=== PATIENT | female | born 1960 | race Two or more races ===

== ENCOUNTER 2024-10-24 10:48 | Inpatient (IN) | payer MEDICARE, MEDICAID ==
[~2024-10-24] VITALS: Ht 157.5 cm; Wt 85.5 kg
--- NOTE | 2024-10-24 11:11 | ED.PDOC ---
History of Present Illness HPI Comments 63-year-old female with a history of dementia, diabetes, anxiety, and tremors, was brought in by emergency services with a chief complaint of generalized weakness, with the associated chills. Emergency services states the patient has been feeling weak for the past couple of days, which is abnormal from her baseline. EMS also notes the patient's blood sugar on route was noted to be 285. Patient is noted to be alert oriented x3 at this time. Patient denies any nausea, vomiting, diarrhea, abdominal pain, chest pain, shortness a breath, dysuria, hematuria, or any other associated symptoms, modifiers at this time. 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 Family History Family History: Reviewed,noncontributory to illness Social History Smoker: Non-Smoker Alcohol: Denies ETOH Use Drugs: Denies Drug Use Lives In: Assisted Care Constitutional: reports: chills, weakness; denies: diaphoresis, fatigue, fever, malaise, sweats, others EENTM: denies: blurred vision, double vision, ear bleeding, ear discharge, ear drainage, ear pain, ear ringing, eye pain, eye redness, hearing loss, mouth pain, mouth swelling, nasal discharge, nose bleeding, nose congestion, nose pain, photophobia, tearing, throat pain, throat swelling, voice changes, others Respiratory: denies: cough, hemoptysis, orthopnea, SOB at rest, shortness of breath, SOB with excertion, stridor, wheezing, others Cardiovascular: denies: chest pain, dizzy spells, diaphoresis, Dyspnea on exertion, edema, irregular heart beat, left arm pain, lightheadedness, palpita tions, PND, syncope, others Gastrointestinal: denies: abdomen distended, abdominal pain, blood streaked luis wels, constipated, diarrhea, dysphagia, difficulty swallowing, hematemesis, melena, nausea, poor appetite, poor fluid intake, rectal bleeding, rectal pain, vomiting, others Genitourinary: denies: abnormal vagina bleeding, burning, dyspareunia, dysuria, flank pain, frequency, hematuria, incontinence, pain, , vagina discharge, urgency, others Neurological: denies: dizziness, fainting, headache, left sided numbness, left sided weakness, numbness, paresthesia, pre-existing deficit, right sided numbness, right sided weakness, seizure, speech problems, tingling, tremors, weakness, others Musculoskeletal: denies: back pain, gout, joint pain, joint swelling, muscle pain, muscle stiffness, neck pain, others Integumetry: denies: bruises, change in color, change in hair/nails, dryness, laceration, lesions, lumps, rash, wounds, others Allergic/Immunocompromised: denies: Difficulty Healing, Frequent Infections, Hives, Itching, others Hematologic/Lymphatic: denies: anemia, blood clots, easy bleeding, easy bruis ing, swollen glands, others Endocrine: denies: excessive hunger, excessive sweating, excessive thirst, exc essive urination, flushing, intolerance to cold, intolerance to heat, unexplained weight gain, unexplained weight loss, others Psychiatric: denies: anxiety, bipolar disorder, depression, hopeless, panic disorder, schizophrenia, sleepless, suicidal, others All Other Systems: Reviewed and Negative Physical Exam General Appearance: Moderate Distress, Normal HEENT: Normal ENT Inspection, Pharynx Normal, TMs Normal Neck: Full Range of Motion, Non-Tender, Normal, Normal Inspection Respiratory: Chest Non-Tender, Lungs Clear, No Accessory Muscle Use, No Respiratory Distress, Normal Breath Sounds Cardiovascular: No Edema, No JVD, No Murmur, No Gallop, Normal Peripheral Pulses, Regular Rate/Rhythm Breast Exam: Deferred Gastrointestinal: No Organomegaly, Non Tender, No Pulsatile Mass, Normal Bowel Sounds, Soft Genitalia: Deferred Pelvic: Deferred Rectal: Deferred Extremities: No calf tenderness, Normal capillary refill, Normal inspection, Normal range of motion, Non-tender, No pedal edema Musculoskeletal : Apperance: Normal Neurologic: Disoriented, No Motor Deficits, Normal Affect, Normal Mood, No Sensory Deficits Cerebellar Function: NOT DONE Reflexes: NOT DONE Skin: Dry, Normal Color, Warm Peripheral Pulses: 3+ Radial (R), 3+ Radial (L) Lymphatic: No Adenopathy Was a procedure done? Was a procedure done?: No Differential Dx Considerations may include: Musculoskeletal pain, influenza, hyperglycemia, anxiety X-Ray, Labs, Meds, VS Vital Signs Date Time Temp Pulse Resp B/P (MAP) Pulse Ox O2 Delivery O2 Flow Rate FiO2 10/24/24 11:04 98.1 88 18 100/66 93 98.1 Lab Test 10/24/24 11:48 Range/Units White Blood Count 6.8 4.4-10.8 10^3/uL Red Blood Count 4.98 4.0-5.20 10^6/uL Hemoglobin 15.1 12.2-16.2 g/dL Hematocrit 45.2 36.0-46.0 % Mean Corpuscular Volume 90.9 80.0-100.0 fL Mean Corpuscular Hemoglobin 30.4 28.0-32.0 pg Mean Corpuscular Hemoglobin Concent 33.5 32.0-36.0 g/dL Red Cell Distribution Width 13.5 11.8-14.3 % Platelet Count 231 140-450 10^3/uL Mean Platelet Volume 8.2 6.9-10.8 fL Neutrophils (%) (Auto) 58.3 37.0-80.0 % Lymphocytes (%) (Auto) 25.9 10.0-50.0 % Monocytes (%) (Auto) 11.4 0.0-12.0 % Eosinophils (%) (Auto) 4.1 0.0-7.0 % Basophils (%) (Auto) 0.3 0.0-2.0 % Neutrophils # (Auto) 4.0 1.6-8.6 10 ^3/uL Lymphocytes # (Auto) 1.8 0.4-5.4 10 ^3/uL Monocytes # (Auto) 0.8 0-1.3 10 ^3/uL Eosinophils # (Auto) 0.3 0-0.8 10 ^3/uL Basophils # (Auto) 0 0-0.2 10 ^3/uL Nucleated Red Blood Cells 0.1 % Sodium Level 144 136-145 mmol/L Potassium Level 3.8 3.5-5.1 mmol/L Chloride Level 107 98-107 mmol/L Carbon Dioxide Level 28 20-31 mmol/L Anion Gap 9 5-15 Blood Urea Nitrogen 14 9-23 mg/dL Creatinine 1.02 0.550-1.02 mg/dL Glomerular Filtration Rate Calc 61 >90 mL/min BUN/Creatinine Ratio 13.7 10.0-20.0 Serum Glucose 100 74-106 mg/dL Calcium Level 9.0 8.7-10.4 mg/dL Troponin I High Sensitivity < 3 L </=34 ng/L Current Medications Medications (Trade) Dose Ordered Sig/Shelly Route Start Time Stop Time Status Last Admin Sodium Chloride 1,000 ml @ 1,000 mls/hr Q1H ONCE IV 10/24/24 11:30 10/24/24 12:29 DC 10/24/24 11:50 Patient answering simple questions. Vitals stable. History of dementia. Cardiac marker within normal limits. Blood pressure slightly low. Was given fluids. Explained to the patient. Continue monitoring. PATIENT: DREW BAKER ACCT: [id number] UNIT: [id number] : 02/17/1961 LOC: ER ROOM / BED: / AGE / SEX: 63 / F ADM STATUS: REG ER SERVICE 1120 ORDERING PHYSICIAN: AMANDA TUCKER MD PROCEDURE(s): CXRP - CHEST PORTABLE REASON: sob ORDER NUMBER(s): [id number], ACCESSION NUMBER(s): [id number] XY CHEST PORTABLE, HISTORY: sob COMPARISON: None None TECHNICAL DATA: 1 view of the chest was obtained. FINDINGS: Lines and tubes: None Cardiomediastinal silhouette: Enlarged Pulmonary vasculature: normal Lung expansion: normal Lung airspace: normal Lung interstitium: normal Pleura: normal Pneumothorax: no Bones: Unremarkable Other: no IMPRESSION: No acute intrathoracic abnormality. Time of 1ST Reevaluation: 11:38 Reevaluation 1ST: Unchanged Patient Education/Counseling: Diagnosis, Treatment, Need For Follow Up Family Education/Counseling: No Family Present SEPSIS Sepsis Screen Physician Orders Chest Portable (10/24/24 11:20) Urinalysis (10/24/24 11:20) Vital Signs Date Time Temp Pulse Resp B/P (MAP) Pulse Ox O2 Delivery O2 Flow Rate FiO2 10/24/24 11:04 98.1 88 18 100/66 93 98.1 Laboratory Tests Test 10/24/24 11:48 White Blood Count 6.8 10^3/uL (4.4-10.8) Medications Medications Dose Ordered Sig/Shelly Route Start Time Stop Time Status Last Admin Dose Admin Sodium Chloride 1,000 ml @ 1,000 mls/hr Q1H ONCE IV 10/24/24 11:30 10/24/24 12:29 DC 10/24/24 11:50 Departure 1 Departure Time of Disposition: 12:49 Impression: Primary Impression: Hypotension Qualified Codes: I95.9 - Hypotension, unspecified Additional Impression: Metabolic encephalopathy Disposition: ADMITTED INPATIENT Admit to: Med Surg Condition: Guarded Critical Care Note Critical Care Time?: Yes (90 min-critical care time only) Stability Stability form required: No Heart Score Heart Score: Heart Score Response (Comments) Value History Slightly Suspicious 0 EKG Normal 0 Age >65 2 Risk Factors >3 or Hx ASHD 2 Troponin Normal limit 0 Total 4 I personally scribed for AMANDA TUCKER MD ([email or web address]) on 10/24/24 at 11:11. Electronically submitted by Axel Richmond ([employer]). I personally scribed for AMANDA TUCKER MD ([email or web address]) on 10/24/24 at 12:04. Electronically submitted by Axel Richmond ([employer]). I personally scribed for AMANDA TUCKER MD ([email or web address]) on 10/24/24 at 12:06. Electronically submitted by Axel Richmond ([employer]). AMANDA TUCKER MD Oct 24, 2024 11:11
[2024-10-24] MEDS: SODIUM CHLORIDE 0.9% 1,000 ML IV ONE ×2 (11:50→21:43)
--- NOTE | 2024-10-24 11:50 | DVH ---
XY CHEST PORTABLE, HISTORY: sob COMPARISON: None None TECHNICAL DATA: 1 view of the chest was obtained. FINDINGS: Lines and tubes: None Cardiomediastinal silhouette: Enlarged Pulmonary vasculature: normal Lung expansion: normal Lung airspace: normal Lung interstitium: normal Pleura: normal Pneumothorax: no Bones: Unremarkable Other: no IMPRESSION: No acute intrathoracic abnormality.
[2024-10-24 12:07] LABS: Hematocrit 45.2 % (36.0-46.0); Hemoglobin 15.1 g/dL (12.2-16.2); Mean Corpuscular Hemoglobin 30.4 pg (28.0-32.0); Mean Corpuscular Volume 90.9 fL (80.0-100.0); Nucleated Red Blood Cells % 0.1 %
[2024-10-24 12:13] LABS: Chloride 107 mmol/L (98-107); Potassium 3.8 mmol/L (3.5-5.1); Sodium 144 mmol/L (136-145)
[2024-10-24 12:14] LABS: Anion Gap 9 (5-15); Calcium 9.0 mg/dL (8.7-10.4); Carbon Dioxide 28 mmol/L (20-31)
[2024-10-24 12:19] LABS: BUN/Creatinine Ratio 13.7 (10.0-20.0); Blood Urea Nitrogen 14 mg/dL (9-23); Glucose 100 mg/dL (74-106)
[2024-10-24] MEDS ORDERED: SODIUM CHLORIDE 0.9% 1,000 ML IV ONE (13:00)
[2024-10-24] MEDS ORDERED: AZITHROMYCIN 500MG/ 250ML 250 ML IV ONE (13:00)
[2024-10-24 18:40] VITALS: PULSE 72; RESP 16; O2SAT 93
[2024-10-24] MEDS ORDERED: ONDANSETRON HCL 4 MG/2 ML VIAL IV PRN (21:45)
[2024-10-24] MEDS ORDERED: HYDROcodone-ACET 5/325MG TAB PO PRN (21:45)
[2024-10-24] MEDS ORDERED: DEXTROSE (50%) 50ML SYRG IV PRN (21:45)
[2024-10-24] MEDS ORDERED: ACETAMINOPHEN 325 MG TAB PO PRN (21:45)
[2024-10-24] MEDS ORDERED: hydrALAZINE HCL 20 MG/ML VL IV PRN (21:45)
[2024-10-24] MEDS ORDERED: DOCUSATE SOD 100 MG CAP PO PRN (21:45)
[2024-10-24] MEDS: ACCU-CHEK COMFORT CURVE STRIP VI SCH (22:00)
[2024-10-24] MEDS: InsuLIN REG 1unit/0.01ml Soln (100units/ml) SC SCH (22:00)
[2024-10-24] MEDS: SODIUM CHLOR 0.9% PF (SALINE LOCK) 10ML VIAL/SYR IV SCH (22:02)
[2024-10-24] MEDS: CEFEPIME 1GM/ 50ML 50 ML IV ONE (22:28)
--- NOTE | 2024-10-24 23:14 | DVHHP2 ---
History of Present Illness Reason for Visit: Generalized weakness History of Present Illness The patient is a 63 years old female with past medical history of anxiety, dementia, tremors, and diabetes mellitus who presented to [facility] ED with complaint of generalized weakness. Patient reports she has been experi encing weakness for the past couple of days, associated with chills, getting worse today that prompted this visit. Patient was seen and evaluated in the ED, laboratory data shows WBC 6.8, platelets 231, sodium 144, potassium 3.8, BUN 14, creatinine 1.02, glucose 100, calcium 9.0, troponin < 3, blood pressure 141/93, pulse 72, temperature 97.6 F, O2 saturation 95% on room air. Chest x-ray show no acute intrathoracic abnormality. On my assessment, patient denied chest pain, no headache, dizziness, no diaphoresis, no shortness of breath, no abdominal pain, no diarrhea, no nausea, no vomiting, no fever, no chills. Patient was admitted for further evaluation and medical management. Past Medical History Anxiety, Dementia, DM, Tremors Past Surgical History Denies all surgeries Family History Reviewed, noncontributory to the management of this case. Past Social History The patient lives at home, denies smoking, alcohol or illicit drugs abuse. Review of Systems Constitutional: Yes: Weakness; No: Fever, Chills, Sweats, Malaise, Other Eyes: No: Pain, Vision change, Conjunctivae inflammation, Eyelid inflammation, Other, Redness ENT: No: Ear pain, Ear discharge, Nose pain, Nose discharge, Nose congestion, Mouth pain, Mouth swelling, Throat pain, Throat swelling, Other Respiratory: No: Cough, Dry, Shortness of breath, SOB with excertion, Wheezing, Hemoptysis, Pleuritic Pain, Sputum, Wheezing, Other Cardiovascular: No: Chest Pain, Palpitations, Orthopnea, Paroxysmal Noc. Dyspnea, Edema, Lt Headedness, Other Gastrointestinal: No: Nausea, Vomiting, Abdominal Pain, Diarrhea, Constipation, Melena, Hematochezia, Other Genitourinary: No Dysuria, No Frequency, No Incontinence, No Hematuria, No Retention, No Other Musculoskeletal: No: other, neck pain, shoulder pain, arm pain, back pain, hand pain, leg pain, foot pain Skin: No: Rash, Lesions, Jaundice, Bruising, Other Neurological: No: Weakness, Numbness, Incoordination, Change in speech, Confusion, Seizures, Other Allergies: Coded Allergies: UNOBTAINABLE (Unverified , 10/24/24) Medications Current Medications Medications Dose Ordered Sig/Shelly Route Start Time Stop Time Status Last Admin Dose Admin Diagnostic Test (Pha) 1 strip ACHS 10/24/24 22:00 Insulin Human Regular ACHS SC 10/24/24 22:00 Dextrose 50 ml UD PRN IV 10/24/24 21:45 Sodium Chloride 10 ml Q8HR IV 10/24/24 22:00 10/24/24 22:02 10 ML Acetaminophen/ Hydrocodone Bitart 1 tab Q4HP PRN PO 10/24/24 21:45 Ondansetron HCl 4 mg Q4HP PRN IV 10/24/24 21:45 Docusate Sodium 100 mg BIDPRN PRN PO 10/24/24 21:45 Acetaminophen 650 mg Q6HP PRN PO 10/24/24 21:45 Hydralazine HCl 10 mg Q6HP PRN IV 10/24/24 21:45 Exam Vital Signs Vital Signs Date Time Temp Pulse Resp B/P (MAP) Pulse Ox O2 Delivery O2 Flow Rate FiO2 10/24/24 20:10 97.4 70 18 141/83 (102) 95 97.4 10/24/24 18:40 Room Air* 0 21 General Appearance: Alert, Oriented X3, Cooperative, No acute distress HEENT: Atraumatic, PERRLA, EOMI, Mucous membr. moist/pink Respiratory: Normal air movement Cardiovascular: Regular rate, Normal S1, Normal S2, No murmurs Abdominal: Normal bowel sounds, Soft, No tenderness, No hepatospenomegaly, No masses Extremities: No clubbing, No cyanosis, No edema, Normal pulses, No tenderness/swelling Skin: No rashes, No breakdown, No significant lesion Neuro: Normal speech, Normal tone, Sensation intact, Cranial nerves 3-12 NL, Reflexes 2+, Other (Generalized weakness) Psych/Mental Status: Mental status NL, Mood NL Labs/Xrays Labs Test 10/24/24 13:28 10/24/24 11:48 Range/Units Lactic Acid Level 1.2 0.4-2.0 mmol/L White Blood Count 6.8 4.4-10.8 10^3/uL Red Blood Count 4.98 4.0-5.20 10^6/uL Hemoglobin 15.1 12.2-16.2 g/dL Hematocrit 45.2 36.0-46.0 % Mean Corpuscular Volume 90.9 80.0-100.0 fL Mean Corpuscular Hemoglobin 30.4 28.0-32.0 pg Mean Corpuscular Hemoglobin Concent 33.5 32.0-36.0 g/dL Red Cell Distribution Width 13.5 11.8-14.3 % Platelet Count 231 140-450 10^3/uL Mean Platelet Volume 8.2 6.9-10.8 fL Neutrophils (%) (Auto) 58.3 37.0-80.0 % Lymphocytes (%) (Auto) 25.9 10.0-50.0 % Monocytes (%) (Auto) 11.4 0.0-12.0 % Eosinophils (%) (Auto) 4.1 0.0-7.0 % Basophils (%) (Auto) 0.3 0.0-2.0 % Neutrophils # (Auto) 4.0 1.6-8.6 10 ^3/uL Lymphocytes # (Auto) 1.8 0.4-5.4 10 ^3/uL Monocytes # (Auto) 0.8 0-1.3 10 ^3/uL Eosinophils # (Auto) 0.3 0-0.8 10 ^3/uL Basophils # (Auto) 0 0-0.2 10 ^3/uL Nucleated Red Blood Cells 0.1 % Sodium Level 144 136-145 mmol/L Potassium Level 3.8 3.5-5.1 mmol/L Chloride Level 107 98-107 mmol/L Carbon Dioxide Level 28 20-31 mmol/L Anion Gap 9 5-15 Blood Urea Nitrogen 14 9-23 mg/dL Creatinine 1.02 0.550-1.02 mg/dL Glomerular Filtration Rate Calc 61 >90 mL/min BUN/Creatinine Ratio 13.7 10.0-20.0 Serum Glucose 100 74-106 mg/dL Calcium Level 9.0 8.7-10.4 mg/dL Troponin I High Sensitivity < 3 L </=34 ng/L PATIENT: DREW BAKER ACCT: [id number] UNIT: [id number] : 02/17/1961 LOC: ER ROOM / BED: / AGE / SEX: 63 / F ADM STATUS: REG ER SERVICE 1120 ORDERING PHYSICIAN: AMANDA TUCKER MD PROCEDURE(s): CXRP - CHEST PORTABLE REASON: sob ORDER NUMBER(s): [id number], ACCESSION NUMBER(s): [id number] XY CHEST PORTABLE, HISTORY:sob COMPARISON: None None TECHNICAL DATA: 1 view of the chest was obtained. FINDINGS: Lines and tubes: None Cardiomediastinal silhouette: Enlarged Pulmonary vasculature: normal Lung expansion: normal Lung airspace: normal Lung interstitium: normal Pleura: normal Pneumothorax: no Bones: Unremarkable Other: no IMPRESSION: No acute intrathoracic abnormality. SEPSIS Sepsis Screen Date sepsis recognized/suspect: Oct 24, 2024 Time Sepsis recognized/suspect: 1839 Recent Procedure: No On Antibiotic Therapy: No Respiratory Rate >20: No Heart Rate >90: No Temp<36 C (96.8 F) or >38.3 C: No SBP <90 or MAP <65 mmHG: No New Acute Mental Status Change: No Is the patient on CPAP, BIPAP,: No Physician Orders Consistent Carb(Ccho)Diabetes (10/25/24 Breakfast) Glucose Blood (Accu-Chek Comfort Curve T (10/24/24 22:00) Insulin R (Human) (Insulin R) (10/24/24 22:00) Dextrose 50% Syringe (10/24/24 21:45) Allergies (10/24/24 21:34) Code Status (10/24/24 21:34) Sodium Chloride Lock (Saline Lock Ns) (10/24/24 22:00) Oxygen Per Hour (10/24/24 21:34) Hydrocodone-Acet 5/325mg Tab ([place] 5/32 (10/24/24 21:45) Ondansetron Hcl (Zofran) (10/24/24 21:45) Docusate Sodium Capsule (Colace Capsule) (10/24/24 21:45) Complete Blood Count (10/25/24 04:00) Comprehensive Metabolic Panel (10/25/24 04:00) Condition: Serious (10/24/24 21:34) Acetaminophen Tablet (Tylenol Tablet) (10/24/24 21:45) Bedrest With Bathroom Privileg (10/24/24 21:34) Sequential Compression Device (10/24/24 ) Hydralazine Injection (Apresoline Inject (10/24/24 21:45) Vital Signs Date Time Temp Pulse Resp B/P (MAP) Pulse Ox O2 Delivery O2 Flow Rate FiO2 10/24/24 20:10 97.4 70 18 141/83 (102) 95 97.4 10/24/24 18:40 72 16 93 Room Air* 0 21 10/24/24 18:40 98.2 72 16 141/93 (109) 93 98.2 Laboratory Tests Test 10/24/24 11:48 10/24/24 13:28 White Blood Count 6.8 10^3/uL (4.4-10.8) Lactic Acid Level 1.2 mmol/L (0.4-2.0) Medications Medications Dose Ordered Sig/Shelly Route Start Time Stop Time Status Last Admin Dose Admin Cefepime HCl 50 ml @ 12.5 mls/hr ONCE ONCE IV 10/24/24 13:00 10/24/24 16:59 DC 10/24/24 22:28 12.5 MLS/HR Sodium Chloride 10 ml Q8HR IV 10/24/24 22:00 10/24/24 22:02 10 ML Sodium Chloride 1,000 ml @ 1,000 mls/hr Q1H ONCE IV 10/24/24 11:30 10/24/24 12:29 DC 10/24/24 11:50 1,000 MLS/HR Assessment/Plan Assessment/Plan Metabolic encephalopathy Frequent falls Generalized weakness Plan 1. Admit to telemetry unit 2. Breathing treatment 3. Pain control management 4. Management of fluids and electrolytes 5. Consultation for hospitalist 6. Diagnostic tests chest x-ray 7. DVT prophylaxis on SCDs 8. Repeat labs CBC, CMP in a.m. 9. Continue with current medical management 10. Treatment plan discussed with patient and RN. Patient verbalized understanding. Plan discussed with: Patient, Other (RN) My Orders Orders - NEREIDA CAREY DNP Procedure Category Date Status Time Consistent DIET 10/25/24 Transmitted Carb(Ccho)Diabetes Breakfast Glucose Blood PHA 10/24/24 In Process (Accu-Chek Comfort 22:00 Insulin R (Human) PHA 10/24/24 In Process (Insulin R) 22:00 Dextrose 50% Syringe PHA 10/24/24 In Process 21:45 Allergies SUNNY 8/22/25 In Process 21:34 Code Status CODE 10/24/24 Transmitted 21:34 Sodium Chloride Lock PHA 10/24/24 In Process (Saline Lock Ns) 22:00 Oxygen Per Hour RT 10/24/24 Transmitted 21:34 Hydrocodone-Acet PHA 10/24/24 In Process 5/325mg Tab ([place] 21:45 Ondansetron Hcl PHA 10/24/24 In Process (Zofran) 21:45 Docusate Sodium PHA 10/24/24 In Process Capsule (Colace 21:45 Complete Blood Count LAB 10/25/24 Verified 04:00 Comprehensive LAB 10/25/24 Verified Metabolic Panel 04:00 Condition: Serious SUNNY 10/24/24 In Process 21:34 Acetaminophen Tablet PHA 10/24/24 In Process (Tylenol Tablet) 21:45 Bedrest With Bathroom SUNNY 10/24/24 In Process Privileg 21:34 Sequential SUNNY 10/24/24 In Process Compression Device Hydralazine Injection PHA 10/24/24 In Process (Apresoline Inject 21:45 Problem List: (1) Metabolic encephalopathy (2) Frequent falls (3) Generalized weakness Date of Service: Oct 24, 2024 Billing Provider: NEREIDA CAREY DNP Common Visit Codes: [id number] INP/OBS CARE (HIGH) NEREIDA CAREY DNP Oct 24, 2024 23:13
[2024-10-24] MEDS ORDERED: NITROGLYCERIN 0.4 MG SL TAB SL PRN (23:15)
[2024-10-24] MEDS ORDERED: MORPHINE SULFATE INJ 2 MG/ml SYRG IV PRN (23:15)
[2024-10-25 01:47] VITALS: BP 129/76; PULSE 57; RESP 14; TEMP 98.3; O2SAT 92
[2024-10-25 06:48] LABS: Hematocrit 46.2 % (36.0-46.0); Hemoglobin 15.4 g/dL (12.2-16.2); Mean Corpuscular Hemoglobin 30.4 pg (28.0-32.0); Mean Corpuscular Volume 91.4 fL (80.0-100.0); Nucleated Red Blood Cells % 0.0 %
[2024-10-25 07:05] LABS: Alanine Aminotransferase 14 U/L (7-40); Albumin 4.1 g/dL (3.2-4.8); Alkaline Phosphatase 68 U/L (46-116); Anion Gap 9 (5-15); BUN/Creatinine Ratio 12.4 (10.0-20.0); Bilirubin, Total 0.5 mg/dL (0.2-1.0); Blood Urea Nitrogen 11 mg/dL (9-23); Carbon Dioxide 27 mmol/L (20-31); Chloride 106 mmol/L (98-107); Glucose 91 mg/dL (74-106); Potassium 3.8 mmol/L (3.5-5.1); Sodium 142 mmol/L (136-145); Total Protein 6.7 g/dL (5.7-8.2)
[2024-10-25 07:08] LABS: Calcium 8.5 mg/dL (8.7-10.4)
[2024-10-25 08:26] VITALS: BP 114/62; PULSE 63; RESP 16; TEMP 99.1; O2SAT 91
[2024-10-25 12:23] VITALS: BP 114/62; PULSE 63; RESP 16; TEMP 99.1; O2SAT 91
[2024-10-25] MEDS ORDERED: LORazepam 0.5 MG TAB PO PRN (17:00)
--- NOTE | 2024-10-25 18:18 | DVHPN2 ---
Subjective Patient's was seen and evaluated by me. Patient is complaining of generalized weakness and recurrent falls at nursing facility. 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 Medications Current Medications Medications Dose Ordered Sig/Shelly Route Start Time Stop Time Status Last Admin Dose Admin Diagnostic Test (Pha) 1 strip ACHS 10/24/24 22:00 10/25/24 17:03 1 STRIP Insulin Human Regular ACHS SC 10/24/24 22:00 10/25/24 17:05 2 UNITS Dextrose 50 ml UD PRN IV 10/24/24 21:45 Sodium Chloride 10 ml Q8HR IV 10/24/24 22:00 10/25/24 06:24 10 ML Acetaminophen/ Hydrocodone Bitart 1 tab Q4HP PRN PO 10/24/24 21:45 Ondansetron HCl 4 mg Q4HP PRN IV 10/24/24 21:45 Docusate Sodium 100 mg BIDPRN PRN PO 10/24/24 21:45 Acetaminophen 650 mg Q6HP PRN PO 10/24/24 21:45 Hydralazine HCl 10 mg Q6HP PRN IV 10/24/24 21:45 Nitroglycerin 0.4 mg Q5MINP PRN SL 10/24/24 23:15 Morphine Sulfate 2 mg Q30M PRN IV 10/24/24 23:15 Lorazepam 0.5 mg Q4HPRN PRN PO 10/25/24 17:00 Laboratory Results Laboratory Tests 10/25/24 06:22 Chemistry Test 10/25/24 06:22 Albumin 4.1 g/dL (3.2-4.8) Calcium Level 8.5 mg/dL (8.7-10.4) L Total Protein 6.7 g/dL (5.7-8.2) LFT Test 10/25/24 06:22 Alanine Aminotransferase (ALT) 14 U/L (7-40) Alkaline Phosphatase 68 U/L (46-116) Aspartate Amino Transferase (AST) 20 U/L (13-40) Total Bilirubin 0.5 mg/dL (0.2-1.0) Microbiology Microbiology Date/Time Source Procedure Growth Status 10/24/24 13:28 Blood Blood Culture - Preliminary NO GROWTH AFTER 24 HOURS OF INCUBATION. Resulted Assessment/Plan Assessment/Plan 63-year-old female with a known history of Alzheimer dementia, tremors, diabetes mellitus type 2 comes to the hospital with generalized weakness and falls found to have 1. Generalized weakness 2. Recurrent falls 3. Alzheimer dementia 4. Diabetes mellitus type 2 5. 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 Plan discussed with: Patient My Orders Orders - ASHLEY GUO MD Procedure Category Date Status Time Lorazepam Tablet PHA 10/25/24 In Process (Ativan Tablet) 17:00 Date of Service: Oct 25, 2024 Billing Provider: ASHLEY GUO MD Common Visit Codes: [id number] INP/OBS CARE(MOD) ASHLEY GUO MD Oct 25, 2024 18:18
[2024-10-25 21:16] VITALS: PULSE 65
[2024-10-26 01:00] VITALS: BP 128/77; PULSE 75; RESP 18; TEMP 96.9; O2SAT 93
[2024-10-26 08:00] VITALS: PULSE 65; PULSE 83; RESP 18; O2SAT 92
[2024-10-26 08:51] VITALS: BP 115/83; PULSE 83; RESP 17; TEMP 98.6; O2SAT 92
[2024-10-26 12:34] VITALS: BP 122/81; PULSE 81; RESP 16; TEMP 98.1
--- NOTE | 2024-10-26 13:07 | DVHDS2 ---
Discharge Summary Date of Admission Oct 24, 2024 at 23:12 Date of Discharge: Oct 26, 2024 Labs/Diagnostic Data: Laboratory Results Test 10/26/24 11:37 10/25/24 06:22 10/24/24 13:28 10/24/24 11:48 POC Glucose 136 mg/dl (70-106) White Blood Count 6.1 10^3/uL (4.4-10.8) Red Blood Count 5.05 10^6/uL (4.0-5.20) Hemoglobin 15.4 g/dL (12.2-16.2) Hematocrit 46.2 % (36.0-46.0) Mean Corpuscular Volume 91.4 fL (80.0-100.0) Mean Corpuscular Hemoglobin 30.4 pg (28.0-32.0) Mean Corpuscular Hemoglobin Concent 33.2 g/dL (32.0-36.0) Red Cell Distribution Width 13.8 % (11.8-14.3) Platelet Count 231 10^3/uL (140-450) Mean Platelet Volume 8.1 fL (6.9-10.8) Neutrophils (%) (Auto) 64.9 % (37.0-80.0) Lymphocytes (%) (Auto) 19.3 % (10.0-50.0) Monocytes (%) (Auto) 11.4 % (0.0-12.0) Eosinophils (%) (Auto) 4.1 % (0.0-7.0) Basophils (%) (Auto) 0.3 % (0.0-2.0) Neutrophils # (Auto) 4.0 10 ^3/uL (1.6-8.6) Lymphocytes # (Auto) 1.2 10 ^3/uL (0.4-5.4) Monocytes # (Auto) 0.7 10 ^3/uL (0-1.3) Eosinophils # (Auto) 0.2 10 ^3/uL (0-0.8) Basophils # (Auto) 0 10 ^3/uL (0-0.2) Nucleated Red Blood Cells 0.0 % Sodium Level 142 mmol/L (136-145) Potassium Level 3.8 mmol/L (3.5-5.1) Chloride Level 106 mmol/L (98-107) Carbon Dioxide Level 27 mmol/L (20-31) Anion Gap 9 (5-15) Blood Urea Nitrogen 11 mg/dL (9-23) Creatinine 0.89 mg/dL (0.550-1.02) Glomerular Filtration Rate Calc 72 mL/min (>90) BUN/Creatinine Ratio 12.4 (10.0-20.0) Serum Glucose 91 mg/dL (74-106) Calcium Level 8.5 mg/dL (8.7-10.4) Total Bilirubin 0.5 mg/dL (0.2-1.0) Aspartate Amino Transferase (AST) 20 U/L (13-40) Alanine Aminotransferase (ALT) 14 U/L (7-40) Alkaline Phosphatase 68 U/L (46-116) Total Protein 6.7 g/dL (5.7-8.2) Albumin 4.1 g/dL (3.2-4.8) Thyroid Stimulating Hormone (TSH) 1.73 uIU/mL (0.55-4.78) Lactic Acid Level 1.2 mmol/L (0.4-2.0) Troponin I High Sensitivity < 3 ng/L (</=34) Other Laboratory Tests 10/25/24 06:22 Brief Hx & Hospital Course: 63-year-old female with a known history of Alzheimer dementia, tremors, diabetes mellitus type 2 comes to the hospital with generalized weakness and falls found to have recurrent falls. Patient also has a known history of diabetes type 2 as well as benign essential tremors. Patient was monitored on tele floor with currently stable to be discharged. [facility]. Condition at Discharge: Stable Final Diagnosis/Problems List 63-year-old female with a known history of Alzheimer dementia, tremors, diabetes mellitus type 2 comes to the hospital with generalized weakness and falls found to have 1. Generalized weakness 2. Recurrent falls 3. Alzheimer dementia 4. Diabetes mellitus type 2 5. Tremors likely benign essential- Discharge Disposition: Assisted Living Facility SNF Discharge Will this Physician continue t: No Discharge Instruct/Medications Diet: Cardiac 2g Na,low cholest Activity: No Restrictions, As Tolerated Follow Up/Referral: Please follow up with the PCP in 1-2 weeks. Medications: Resume home medications. No Active Prescriptions or Reported Meds Discharge Statement: "Patient was advised to return to the ER or call 911 if any headaches, dizziness, shortness of breath, chest pain, abdominal pain, bleeding, fevers, or worsening of medical condition. Patient was counseled about treatment plan, medications, possible side effects, patientverbalized understanding. All questions were answered to the best of my ability. This discharge took greater then 30 minutes in planning, reviewing documentation, counseling the patient, and discussing with other team members." ASSESSMENT ASSESSMENT Assessment 63-year-old female with a known history of Alzheimer dementia, tremors, diabetes mellitus type 2 comes to the hospital with generalized weakness and falls found to have 1. Generalized weakness 2. Recurrent falls 3. Alzheimer dementia 4. Diabetes mellitus type 2 5. Tremors likely benign essential- Date of Service: Oct 26, 2024 Billing Provider: ASHLEY GUO MD Common Visit Codes: 29083-QCK/OBS DISCH DAY >30min ASHLEY GUO MD Oct 26, 2024 13:07
== END 2024-10-26 16:40 | disposition home or self-care (01) | DRG 640 ==
LOC: ER 10:48 → EDBD 10:48 → TELE-WESTW 19:37 → OVERFLOW 23:12 → TELE-WESTW 10-25 20:52
PROVIDERS: ADMIT Nurse Practitioner Family; ATTEND Nurse Practitioner Family
DX: E86.0 Dehydration (principal); G93.41 Metabolic encephalopathy; R29.6 Repeated falls; G30.9 Alzheimer's disease, unspecified; F41.9 Anxiety disorder, unspecified; E11.9 Type 2 diabetes mellitus without complications; F02.80 Dementia in other diseases classified elsewhere, unspecified severity, without behavioral disturbance, psychotic disturbance, mood disturbance, and anxiety
CPT/HCPCS: 36415; 71045; 80048; 80053; 82607; 82746; 82962; 83605; 84443; 84484; 85025; 87040; 96365; 99291; 99292; G0378; J1815